=== PATIENT | male | born 1990 | race Caucasian/White ===

== ENCOUNTER 2022-04-14 08:16 | Emergency (ER) | payer SELFPAY | END 2022-04-14 12:50 | disposition home or self-care (01) | LOC: ER1 08:16 | DX: S91.311A Laceration without foreign body, right foot, initial encounter (principal); Z88.0 Allergy status to penicillin; W23.1XXA Caught, crushed, jammed, or pinched between stationary objects, initial encounter; Y92.89 Other specified places as the place of occurrence of the external cause; Y99.0 Civilian activity done for income or pay | CPT/HCPCS: 12002; 73610; 73630; 90471; 90715; 99283 ==